=== PATIENT | male | born 1935 | race Caucasian/White ===

== ENCOUNTER 2017-03-14 14:40 | Emergency (ER) | payer OTHER ==
[~2017-03-14] VITALS: Ht 167.6 cm; Wt 91.4 kg
[~2017-03-14 14:40] MED LIST: APRESOLINE25 MG PO; ASPIR 8181 M1 PO; ASPIRIN EC325 M1 PO; ATIVAN1 MG PO; CEFTIN500 MG PO; K-DUR20 MEQ PO; LASIX80 MG PO; LIPITOR40 MG PO; LISINOPRIL40 MG PO; LOPRESSOR100 M1 PO; METOPROLOL SUC100 MG PO; MUCINEX1200 MG PO; NITROSTAT0.4 MG SL; NORVASC10 MG PO; PLAVIX75 MG PO; PRILOSEC40 MG PO; PRINIVIL40 MG PO; SIMVASTATIN80 M1 PO; ZESTRIL40 MG PO
[2017-03-14 16:13] VITALS: BP 139/71
== END 2017-03-14 16:24 | disposition home or self-care (01) ==
LOC: EME 14:40
DX: T83.091A Other mechanical complication of indwelling urethral catheter, initial encounter (principal); R33.9 Retention of urine, unspecified; I10 Essential (primary) hypertension; I25.10 Atherosclerotic heart disease of native coronary artery without angina pectoris; Z95.1 Presence of aortocoronary bypass graft; Z95.5 Presence of coronary angioplasty implant and graft; Z90.81 Acquired absence of spleen; Z79.02 Long term (current) use of antithrombotics/antiplatelets; Z79.82 Long term (current) use of aspirin; Z87.891 Personal history of nicotine dependence
CPT/HCPCS: 99281; 99284